=== PATIENT | male | born 1990 | race Caucasian/White ===

== ENCOUNTER 2017-02-01 21:51 | Emergency (ER) | payer MEDICAID ==
[2017-02-01 21:55] VITALS: BP 107/72; PULSE 64; RESP 18; TEMP 98.2; O2SAT 99
--- NOTE | 2017-02-01 22:14 | ED PDOC ---
HPI: Psych/Substance Abuse Time Seen by Provider: 02/01/17 21:56 Chief Complaint (Nursing): Psychiatric Evaluation Chief Complaint (Provider): crisis eval History Per: Patient History/Exam Limitations: no limitations Onset/Duration Of Symptoms: Days (months) Current Symptoms Are (Timing): Still Present Additional History Per: Patient Additional Complaint(s): 26 y/o male presents for crisis eval. Patient states ever since his girlfriend broke up with him 3 months ago he has not been sleeping at night. Patient states at night is when he starts thinking about her and then he gets very anxious and can not fall asleep. 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 Denies suicidal/homicidal ideations, hallucinations, acute medical complaints . Past Medical History Reviewed: Historical Data, Nursing Documentation, Vital Signs Vital Signs: Last Vital Signs Temp 98.2 F 02/01/17 21:52 Pulse 64 02/01/17 21:52 Resp 18 02/01/17 21:52 BP 107/72 02/01/17 21:52 Pulse Ox 99 02/01/17 21:52 - Medical History PMH: No Chronic Diseases - Surgical History Surgical History: No Surg Hx - Family History Family History: States: No Known Family Hx - Social History Current smoker - smoking cessation education provided: No Alcohol: None Drugs: Denies - Immunization History Hx Tetanus Toxoid Vaccination: No Hx Influenza Vaccination: No Hx Pneumococcal Vaccination: No - Home Medications Home Medications: Ambulatory Orders Medication Instructions Recorded No Known Home Med 09/06/16 - Allergies Allergies/Adverse Reactions: Allergies Allergy/AdvReac Type Severity Reaction Status Date / Time No Known Allergies Allergy Verified 09/06/16 14:56 Review of Systems ROS Statement: Except As Marked, All Systems Reviewed And Found Negative Psych: Positive for: Anxiety Physical Exam - Reviewed Nursing Documentation Reviewed: Yes Vital Signs Reviewed: Yes - Physical Exam Appears: Positive for: Well, Non-toxic, No Acute Distress Head Exam: Positive for: ATRAUMATIC, NORMAL INSPECTION, NORMOCEPHALIC Skin: Positive for: Normal Color Eye Exam: Positive for: Normal appearance ENT: Positive for: Normal ENT Inspection Cardiovascular/Chest: Positive for: Regular Rate, Rhythm Respiratory: Positive for: Normal Breath Sounds Gastrointestinal/Abdominal: Positive for: Normal Exam Back: Positive for: Normal Inspection Extremity: Positive for: Normal ROM Neurologic/Psych: Positive for: Alert, Oriented - ECG O2 Sat by Pulse Oximetry: 99 - Progress ED Course And Treament: Patient evaluated by central supply worker; does not meet criteria for admission at this time as per Dr. Alexis. Information given for outpatient follow up. Return to ED for worsening/concerning symptoms. Disposition - Clinical Impression Clinical Impression: Anxiety - Patient ED Disposition Is Patient to be Admitted: No Counseled Patient/Family Regarding: Diagnosis, Need For Followup - Disposition Disposition: Routine/Home Disposition Time: 00:21 Condition: STABLE Instructions: Anxiety (ED) Forms: [facility] ED School/Work Excuse
== END 2017-02-02 00:20 | disposition home or self-care (01) ==
LOC: H.ER 21:51
DX: F41.9 Anxiety disorder, unspecified (principal)